=== PATIENT | male | born 1975 | race Caucasian/White ===

== ENCOUNTER 2017-11-03 18:24 | Emergency (ER) | payer MEDICAID ==
[2017-11-03 18:27] VITALS: BP 141/84; PULSE 93; RESP 16; TEMP 97.7; O2SAT 97
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
== END 2017-11-03 23:16 | disposition left against medical advice (07) ==
LOC: NED 18:24
DX: Z76.0 Encounter for issue of repeat prescription (principal); L53.9 Erythematous condition, unspecified
CPT/HCPCS: 99281

== ENCOUNTER 2017-11-07 08:34 | Emergency (ER) | payer MEDICAID, OTHER ==
[~2017-11-07] VITALS: Ht 182.9 cm; Wt 70.0 kg
[2017-11-07 08:36] VITALS: BP 160/88; PULSE 108; RESP 12; TEMP 98.9; O2SAT 98
[2017-11-07] MEDS ORDERED: LIDOCAINE HCL 1% 50 ML VIAL INFIL ONE (09:15)
[2017-11-07] MEDS ORDERED: BACT800T5 PO (09:21)
[2017-11-07] MEDS ORDERED: KETO10 PO (09:21)
--- NOTE | 2017-11-07 09:22 | PD ---
HPI Chief Complaint: Skin Problem Time Seen by Provider: 09:04 Travel History International Travel<30 days: No Contact w/Intl Traveler<30days: No Traveled to known affect area: No History of Present Illness HPI states that about 2 days ago left forearm swelling that he "poked and squeezed a lot of pus out of it" and right lateral deltoid region swelling as well....denies fever/n/v/d/cp/abdpain/ PFSH Social History Tobacco Use: Yes Allergies-Medications (Allergen,Severity, Reaction): Coded Allergies: penicillin G (Verified Allergy, Unknown, UNKNOWN , 11/07/17) Reported Meds & Prescriptions Reported Meds & Active Scripts Active Ketorolac (Ketorolac Tromethamine) 10 Mg Tab 10 Mg PO TID Bactrim DS (Sulfamethoxazole-Trimethoprim) 800-160 Mg Tab 1 Tab PO BID Review of Systems Except as stated in HPI: all other systems reviewed are Neg Skin: Positive Other (swelling to right deltoid and left forearm) Physical Exam Narrative GENERAL: SKIN: Warm and dry....right deltoid has a nonfluctuant area 6x3cm ovoid shape, no streaking noted and no ttp, this is suspicious of a lipoma ....on left proximal forearm has 2cm edematous/ttp/erythematous/without fluctuance HEAD: Atraumatic. Normocephalic. EYES: Pupils equal and round. No scleral icterus. No injection or drainage. ENT: No nasal bleeding or discharge. Mucous membranes pink and moist. NECK: Trachea midline. No JVD. CARDIOVASCULAR: Regular rate and rhythm. RESPIRATORY: No accessory muscle use. Clear to auscultation. Breath sounds equal bilaterally. GASTROINTESTINAL: Abdomen soft, non-tender, nondistended. MUSCULOSKELETAL: Extremities without clubbing, cyanosis, or edema. No obvious deformities. NEUROLOGICAL: Awake and alert. No obvious cranial nerve deficits. Motor grossly within normal limits. Five out of 5 muscle strength in the arms and legs. Normal speech. PSYCHIATRIC: Appropriate mood and affect; insight and judgment normal. Data Data Last Documented VS Orders Orders Lidocaine 1% Inj (50 Ml) (Xylocaine 1% I (11/07/17 09:15) Ed Discharge Order (11/07/17 10:20) MDM Medical Decision Making Medical Screen Exam Complete: Yes Emergency Medical Condition: Yes Medical Record Reviewed: Yes Differential Diagnosis cellulitis v abscess v lipoma Narrative Course minimal amount of pus noted, most likely a lipoma rather than an abscess. referred patient to [place] for referral to general surgeon for removal. Procedures Procedure Narrative After the risks and benefits were discussed the following procedure was performed: INCISION AND DRAINAGE OF ABSCESS: The area was prepped and was sterilely draped. A subcutaneous wheal of [1] % Xylocaine with a total number [5] mL was used to anesthetize the area. The area was properly anesthetized. A number [11] scalpel was used to make a [1.5] cm T shaped incision across the area of the abscess. Cultures were obtained. The abscess was drained an irrigated with normal saline. Quarter inch iodoform packing was placed in the wound. Sterile dressing applied. Patient advised to have packing removed in two days. on left proximal forearm only Diagnosis Primary Impression: Cellulitis Qualified Codes: L03.114 - Cellulitis of left upper limb Additional Impression: right deltoid (lateral) abscess Referrals: [facility] Patient Instructions: Abscess Incision and Drainage (GEN), Cellulitis (ED), General Instructions Scripts Ketorolac (Ketorolac) 10 Mg Tab 10 MG PO TID for Pain Management, #12 TAB 0 Refills Prov: Barrington Mccrary MD 11/07/17 Sulfamethoxazole-Trimethoprim (Bactrim DS) 800-160 Mg Tab 1 TAB PO BID for Infection, #20 TAB 0 Refills Prov: Barrington Mccrary MD 11/07/17 Disposition: 01 DISCHARGE HOME Condition: Stable Barrington Mccrary MD Nov 07, 2017 09:22
== END 2017-11-07 11:00 | disposition home or self-care (01) ==
LOC: NEPD 08:34
DX: L03.114 Cellulitis of left upper limb (principal); L02.413 Cutaneous abscess of right upper limb; Z72.0 Tobacco use; Z88.0 Allergy status to penicillin
CPT/HCPCS: 10060; 10061